=== PATIENT | male | born 1955 | race Caucasian/White ===

== ENCOUNTER 2021-01-25 01:02 | Emergency (ER) | payer OTHER ==
[2021-01-25 01:11] VITALS: BP 166/97; PULSE 102
--- NOTE | 2021-01-25 01:43 | EDM.PDOC ---
ED HPI GENERAL MEDICAL PROBLEM - General Chief Complaint: Chest Pain Stated Complaint: possible heart issues rapid heart rate Time Seen by Provider: 01/25/21 01:12 Source of Information: Reports: Patient, Family () History Limitations: Reports: No Limitations - History of Present Illness INITIAL COMMENTS - FREE TEXT/NARRATIVE: Mr. Villarreal is a most pleasant 65-year-old gentleman who now presents the ED after developing sudden-onset retrosternal chest tightness, a discomfort, not a pain, that developed around 23:30 this evening, while he was lifting some heavy pots in order to get them out of the rain. The discomfort did not radiate, and he did not identify any modifiers. He states that he had associated dyspnea, possible slight nausea, and a sense of anxiety, although not a sense of impending doom. No associated diaphoresis. At present, the patient states that he has "extremely slight" retrosternal chest tightness, with none of the other associated symptoms. He did not take any [id number] or home remedies prior to coming to the ED. No prior similar symptoms. Here in the ED, the patient's initial BP is found to be elevated at 166/97, with slight tachycardia of 102 bpm. He is afebrile, saturating 95% on room air. He appears to be quite comfortable while semirecumbent on the gurney, in no acute distress. The patient states that about 2 weeks ago, while sitting and talking, he developed a sensation in his mid spine that felt like it was ascending and expanding. He states that he thought he was going to faint. His symptoms resolved after 10 to 15 minutes, without treatment. At no time did he experience any chest discomfort or dyspnea, and he states that the symptoms he experienced 2 weeks ago were distinctly different than what he experienced tonight. He did not seek medical attention for those symptoms. The patient states that he has had symptoms in the past similar to what he experienced 2 weeks ago, that he has always assumed were due to a pinched nerve in his neck, or something. Other than that, however, the patient denies having a recent fever, chills, sore throat, ear pain, nasal or sinus congestion, cough, dyspnea, chest pain, palpitations, nausea, vomiting, constipation, diarrhea, abdominal pain, urinary symptoms, recent weight gain or weight loss, recent bloody bowel movements or black bowel movements, recent joint aches, headaches, or rashes. The patient's PCP was Dr. Holden Carr; he has not found a replacement PCP yet. His Marine Surveyor is Dr. Laron Siegel. - Related Data Allergies Allergy/AdvReac Type Severity Reaction Status Date / Time Penicillins Allergy Rash Verified 01/25/21 01:11 Home Meds: Home Meds Multivitamins/Minerals [Vitamins and Minerals] 1 each PO DAILY 12/30/13 [History] cycloSPORINE [Restasis] 1 each OP DAILY 07/12/16 [History] Alpha Lipoic Acid 600 mg PO DAILY 03/29/19 [History] Ondansetron [Zofran] 4 mg BUCCAL Q6H PRN #5 tab 03/29/19 [Rx] Tamsulosin HCl [Flomax] 0.4 mg PO DAILY #5 cap.er.24h 03/29/19 [Rx] metFORMIN [Glucophage] 500 mg PO BID 03/29/19 [History] oxyCODONE HCl/Acetaminophen [Percocet 5-325 mg Tablet] 1 - 2 each PO Q4H PRN #10 tablet 03/29/19 [Rx] Past Medical History HEENT History: Reports: Impaired Vision Cardiovascular History: Reports: Hypertension Genitourinary History: Reports: BPH (untreated), Renal Calculus Neurological History: Reports: Neuropathy, Peripheral Endocrine/Metabolic History: Reports: Diabetes, Type II Dermatologic History: Reports: Eczema - Infectious Disease History Infectious Disease History: Reports: Chicken Pox, Measles, Mumps - Past Surgical History HEENT Surgical History: Reports: Oral Surgery (dental procedures) GI Surgical History: Reports: Hernia, Inguinal (right) Male Surgical History: Reports: Vasectomy Social & Family History - Tobacco Use Tobacco Use Status *Q: Never Tobacco User Second Hand Smoke Exposure: No - Caffeine Use Caffeine Use: Reports: None - Alcohol Use Alcohol Use History: Yes Alcohol Use Frequency: Rarely - Recreational Drug Use Recreational Drug Use: No - Living Situation & Occupation Living situation: Reports: , with Spouse 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 ED EXAM, GENERAL - Physical Exam Exam: See Below Exam Limited By: No Limitations General Appearance: Alert, WD/WN, No Apparent Distress Eye Exam: Bilateral Eye: EOMI, Normal Inspection Ears: Normal External Exam, Hearing Grossly Normal Nose: Normal Inspection Throat/Mouth: Normal Inspection, Normal Lips, Normal Voice, No Airway Compromise Head: Atraumatic, Normocephalic Neck: Normal Inspection, Full Range of Motion Respiratory/Chest: No Respiratory Distress, Lungs Clear, Normal Breath Sounds, No Accessory Muscle Use, Chest Non-Tender (including the sternum) Cardiovascular: Normal Peripheral Pulses, Regular Rate, Rhythm, No Edema, No Gallop, No JVD, No Murmur, No Rub Peripheral Pulses: 3+: Radial (L), Radial (R) GI/Abdominal: Normal Bowel Sounds, Soft, Non-Tender (palpation of the epigastrium does not induce retrosternal pain), No Organomegaly, No Distention, No Abnormal Bruit, No Mass Back Exam: Normal Inspection, Full Range of Motion, NT Extremities: Normal Inspection, Normal Range of Motion, No Pedal Edema, Normal Capillary Refill Neurological: Alert, Oriented, Normal Cognition, No Motor/Sensory Deficits Psychiatric: Normal Affect Skin Exam: Warm, Dry, Intact, Normal Color, No Rash #1 Interpretation EKG Date: 01/25/21 Time: 01:08 Rhythm: NSR Rate (Beats/Min): 96 Catarina: Normal P-Wave: Enlarged (LAE) QRS: Other (Late transition) ST-T: Other (J-point elevation in V3V5, but no ischemic changes, and no T wave inversions) QT: Normal Comparison: NA - No Prior EKG Course - Vital Signs Last Recorded V/S: Last Vital Signs Temp 36.2 C 01/25/21 01:07 Pulse 102 H 01/25/21 01:07 Resp 20 01/25/21 01:07 BP 166/97 H 01/25/21 01:07 Pulse Ox 95 01/25/21 01:07 - Orders/Labs/Meds Orders: Active Orders 24 hr Category Date Time Status EKG Documentation Completion [RC] STAT Care 01/25/21 01:15 Active Chest 2V [CR] Stat Exams 01/25/21 01:31 Taken Labs: Laboratory Tests 01/25/21 01/25/21 01/25/21 Range/Units 01:14 01:57 01:57 WBC 7.04 (4.23-9.07) K/mm3 RBC 4.58 L (4.63-6.08) M/mm3 Hgb 14.0 (13.7-17.5) gm/dl Hct 41.0 (40.1-51.0) % MCV 89.5 D (79.0-92.2) fl MCH 30.6 (25.7-32.2) pg MCHC 34.1 (32.2-35.5) g/dl RDW Std Deviation 41.8 (35.1-43.9) fL Plt Count 172 (163-337) K/mm3 MPV 10.7 (9.4-12.3) fl Neutrophils % (Manual) 66 H (40-60) % Band Neutrophils % 0 (0-10) % Lymphocytes % (Manual) 23 (20-40) % Atypical Lymphs % 0 % Monocytes % (Manual) 9 (2-10) % Eosinophils % (Manual) 2 (0.8-7.0) % Basophils % (Manual) 0 L (0.2-1.2) Platelet Estimate Adequate RBC Morph Comment Normal D-Dimer, Quantitative 0.40 (0.19-0.50) mg/L Sodium 143 (136-145) mEq/L Potassium 3.8 (3.5-5.1) mEq/L Chloride 105 (98-107) mEq/L Carbon Dioxide 26 (21-32) mEq/L Anion Gap 15.8 H (5-15) BUN 16 (7-18) mg/dL Creatinine 0.9 (0.7-1.3) mg/dL Est Cr Clr Drug Dosing 88.62 mL/min Estimated GFR (MDRD) > 60 (>60) mL/min BUN/Creatinine Ratio 17.8 (14-18) Glucose 160 H (70-99) mg/dL Calcium 9.0 (8.5-10.1) mg/dL Magnesium 1.9 (1.8-2.4) mg/dL Total Bilirubin 0.5 (0.2-1.0) mg/dL AST 18 (15-37) U/L ALT 30 (16-63) U/L Alkaline Phosphatase 88 (46-116) U/L Troponin I < 0.017 (0.00-0.056) ng/mL Total Protein 6.7 (6.4-8.2) g/dl Albumin 4.0 (3.4-5.0) g/dl Globulin 2.7 gm/dL Albumin/Globulin Ratio 1.5 (1-2) 01/25/21 Range/Units 03:36 WBC (4.23-9.07) K/mm3 RBC (4.63-6.08) M/mm3 Hgb (13.7-17.5) gm/dl Hct (40.1-51.0) % MCV (79.0-92.2) fl MCH (25.7-32.2) pg MCHC (32.2-35.5) g/dl RDW Std Deviation (35.1-43.9) fL Plt Count (163-337) K/mm3 MPV (9.4-12.3) fl Neutrophils % (Manual) (40-60) % Band Neutrophils % (0-10) % Lymphocytes % (Manual) (20-40) % Atypical Lymphs % % Monocytes % (Manual) (2-10) % Eosinophils % (Manual) (0.8-7.0) % Basophils % (Manual) (0.2-1.2) Platelet Estimate RBC Morph Comment D-Dimer, Quantitative (0.19-0.50) mg/L Sodium (136-145) mEq/L Potassium (3.5-5.1) mEq/L Chloride (98-107) mEq/L Carbon Dioxide (21-32) mEq/L Anion Gap (5-15) BUN (7-18) mg/dL Creatinine (0.7-1.3) mg/dL Est Cr Clr Drug Dosing mL/min Estimated GFR (MDRD) (>60) mL/min BUN/Creatinine Ratio (14-18) Glucose (70-99) mg/dL Calcium (8.5-10.1) mg/dL Magnesium (1.8-2.4) mg/dL Total Bilirubin (0.2-1.0) mg/dL AST (15-37) U/L ALT (16-63) U/L Alkaline Phosphatase (46-116) U/L Troponin I < 0.017 (0.00-0.056) ng/mL Total Protein (6.4-8.2) g/dl Albumin (3.4-5.0) g/dl Globulin gm/dL Albumin/Globulin Ratio (1-2) Meds: Medications Discontinued Medications Generic Name Dose Route Start Last Admin Trade Name Berenice PRN Reason Stop Dose Admin Aspirin 324 mg 01/25/21 01:56 01/25/21 02:08 Aspirin 81 Mg Tab.Chew PO 01/25/21 01:57 324 mg ONETIME STA Administration - Re-Assessments/Exams Free Text/Narrative Re-Assessment/Exam: 01/25/21 01:33 As above, the patient developed sudden-onset retrosternal chest tightness, along with dyspnea, possibly slight nausea, and a sense of anxiety, when lifting some heavy pots around 23:30 this evening. At present, he only has very slight retrosternal chest tightness, with no other symptoms. His physical exam is completely unremarkable. Although an ECG obtained at triage is unremarkable, there are several features to his story that are concerning for a cardiac etiology. I have ordered a work- up that includes several blood tests and a chest x-ray. 01/25/21 02:07 Two-view chest radiograph appears to be grossly normal. The cardiac silhouette is within normal limits. No pulmonary vascular congestion. No pleural effusions. No focal infiltrate. No pneumothorax. Formal read per the Radiologist pending. 01/25/21 02:32 The patient's CBC is unremarkable. His CMP is remarkable for an anion gap slightly elevated at 15.8, but with a bicarbonate normal at 26, and modest hyperglycemia of 160, with the remainder of his CMP being unremarkable. His magnesium level is within normal limits at 1.9. His troponin is undetectably low. His D-dimer is within normal limits at 0.40. I have ordered repeat troponin to be drawn at 03:30 - 4 hours after the onset of his symptoms. 01/25/21 02:34 Test results discussed with the patient. He states that he is completely asymptomatic at this time. 01/25/21 04:16 The patient's repeat troponin is still undetectably low. 01/25/21 04:21 Test results discussed with the patient and his . As above, today's work-up is entirely unremarkable, however, I am concerned that his presentation was cardiac in etiology, therefore I recommended that we have him establish a PCP in the clinic Tuesday morning, and arrange to get a cardiac stress test this week. Patient is agreeable. In the meantime, I am recommending that the patient begin taking 81 mg of aspirin daily. He is to refrain from physically strenuous activity, and if he redevelops similar symptoms as earlier tonight, which do not resolve promptly with rest, he is to return to the ED for reevaluation. Departure - Departure Time of Disposition: 04:22 Disposition: Home, Self-Care 01 Condition: Good Clinical Impression: Chest pain of uncertain etiology - Discharge Information *PRESCRIPTION DRUG MONITORING PROGRAM REVIEWED*: Not Applicable *COPY OF PRESCRIPTION DRUG MONITORING REPORT IN PATIENT CUONG: Not Applicable Instructions: Nonspecific Chest Pain, Adult, [id number] Referrals: PCP,None [Primary Care Provider] - Ludy Engel NP [Nurse Practitioner] - Forms: ED Department Discharge Additional Instructions: You were seen in the emergency room after developing central chest tightness, along with shortness of breath, some nausea, and anxiety, after lifting some heavy items. Work-up in the ER included numerous blood tests, a chest x-ray, and an ECG. Your entire work-up was unremarkable. You have not suffered a heart attack. You do not have a blood clot in your lungs. You do not have pneumonia or a collapsed lung. Despite your negative work-up, based on your history, physical exam, and ER tests, we are concerned that your symptoms may be due to cardiac ischemia, where your heart did not get an adequate amount of blood flow. We recommend that you contact the clinic Tuesday morning, 01/26/2021, to establish a PCP, either Ludy Engel NP, or whoever is available. Make sure that the hotel or motel receptionist understands that you are following up from the ER, and that we recommend that you be seen immediately. Your PCP can then arrange for you to undergo a cardiac stress test, which we recommend be performed this week. We recommend that you begin taking an 81 mg chewable (not enteric-coated) aspirin daily. We recommend that you refrain from significant physical activity. If you redevelop similar symptoms as you did tonight, we recommend that you immediately sit down. If your symptoms do not resolve within a couple of minutes, we recommend that you chew four 81 mg aspirins and return to the ER immediately. If any other problems, please do not hesitate to return to the ER. Sepsis Event Note (ED) - Evaluation Sepsis Screening Result: No Definite Risk - Focused Exam Vital Signs: Vital Signs Temp Pulse Resp BP Pulse Ox 01/25/21 01:07 36.2 C 102 H 20 166/97 H 95 - My Orders Last 24 Hours: My Active Orders 01/25/21 01:15 EKG Documentation Completion [RC] STAT 01/25/21 01:31 Chest 2V [CR] Stat - Assessment/Plan Last 24 Hours: My Active Orders 01/25/21 01:15 EKG Documentation Completion [RC] STAT 01/25/21 01:31 Chest 2V [CR] Stat
[2021-01-25] MEDS ORDERED: Aspirin 81 MG Tab.Chew PO STA (01:56)
--- NOTE | 2021-01-26 08:08 | CR ---
Chest: 2 views of the chest were obtained. Comparison: Prior chest x-ray of 12/30/13. Heart size and mediastinum are normal. Lungs are clear with no acute parenchymal change. Slight degenerative spurring is noted within the spine. Impression: 1. Nothing acute is seen on 2 view chest x-ray. Diagnostic code #2
== END 2021-01-25 04:39 | disposition home or self-care (01) ==
LOC: JD.ED 01:02
DX: R07.89 Other chest pain (principal); I10 Essential (primary) hypertension; E11.42 Type 2 diabetes mellitus with diabetic polyneuropathy; N40.0 Benign prostatic hyperplasia without lower urinary tract symptoms; Z79.899 Other long term (current) drug therapy; Z88.0 Allergy status to penicillin
CPT/HCPCS: 36415; 71046; 80053; 83735; 84484; 85007; 85027; 85379; 93005; 99285; A9270; 93010; 99284

== ENCOUNTER 2024-01-10 19:59 | Emergency (ER) | payer BC, MEDICARE ==
[2024-01-10 21:47] LABS: BASOPHILS ABSOLUTE AUTO 0.1 K/mm3 (0.0-0.2); BASOPHILS PERCENT AUTO 0.6 % (0.0-1.0); EOSINOPHILS ABSOLUTE AUTO 0.1 K/mm3 (0.0-0.4); EOSINOPHILS PERCENT AUTO 1.3 % (0.0-6.0); HEMATOCRIT 41.2 % (42.0-52.0); HEMOGLOBIN 13.6 gm/dl (14.0-18.0); IMMATURE GRAN ABSOLUTE AUTO 0.03 K/mm3 (0.00-0.05); IMMATURE GRAN PERCENT AUTO 0.4 % (0.0-0.4); LYMPHOCYTES ABSOLUTE AUTO 0.7 K/mm3 (1.0-4.8); LYMPHOCYTES PERCENT AUTO 8.4 % (24.0-44.0); MEAN CORPUSCULAR HEMOGLOBIN 29.9 pg (28.0-32.0); MEAN CORPUSCULAR VOLUME 90.5 fl (83.0-99.0); MEAN PLATELET VOLUME 12.8 fl (9.4-12.4); MONOCYTES ABSOLUTE AUTO 0.8 K/mm3 (0.0-0.8); MONOCYTES PERCENT AUTO 9.2 % (0.0-8.0); NEUTROPHILS ABSOLUTE AUTO 6.6 K/mm3 (1.8-7.7); NEUTROPHILS PERCENT AUTO 80.1 % (41.0-71.0); PLATELET COUNT,PLT 184 K/mm3 (150-400); RED BLOOD CELL COUNT 4.55 M/mm3 (4.52-5.90); WHITE BLOOD CELL COUNT,WBC 8.25 K/mm3 (3.9-11.3)
[2024-01-10] MEDS: Lactated Ringers 1,000 ML IV ONE (21:48)
[2024-01-10 21:57] LABS: INR 1.03
[2024-01-10] MEDS: Sodium Chloride 0.9% 10 ML Syringe FLUSH PRN (21:58)
[2024-01-10 22:03] LABS: D-DIMER QUANTITATIVE 0.73 mg/L (0.19-0.50)
[2024-01-10 22:06] LABS: A/G RATIO 1.3 (1-2); ALBUMIN 3.7 g/dl (3.4-5.0); ANION GAP 12.2 (5-15); BILIRUBIN TOTAL 0.6 mg/dL (0.2-1.0); BUN/CREATININE RATIO 14.5 (14-18); CALCIUM 9.3 mg/dL (8.5-10.1); CREATININE 1.1 mg/dL (0.7-1.3); EST CRCL DRUG DOSING (CG) 69.57 mL/min; POTASSIUM,K 4.2 mEq/L (3.5-5.1); PROTEIN TOTAL,TP 6.6 g/dl (6.4-8.2)
[2024-01-10] MEDS: Iopamidol 755 Mg/ML 100 ML Bottle IVPUSH ONE (23:25)
[2024-01-11] MEDS: Furosemide 40 MG Tab PO ONE (00:47)
[2024-01-11 00:52] VITALS: BP 132/73; PULSE 79
== END 2024-01-11 00:52 | disposition home or self-care (01) ==
LOC: JD.ED 19:59
DX: J81.0 Acute pulmonary edema (principal); I11.0 Hypertensive heart disease with heart failure; I50.9 Heart failure, unspecified; E11.9 Type 2 diabetes mellitus without complications; Z88.0 Allergy status to penicillin; Z79.51 Long term (current) use of inhaled steroids; Z79.899 Other long term (current) drug therapy
CPT/HCPCS: 36415; 71045; 71045-26; 71275; 71275-26; 80053; 83690; 83880; 84484; 85025; 85379; 85610; 93005; 93010; 93971-26-LT; 93971-LT; 96360; 96361; 99284; 99285-25; A9270-GY; J3490; J7120; Q9967

== ENCOUNTER 2024-05-07 17:26 | Emergency (ER) | payer BC, MEDICARE ==
[2024-05-07] MEDS ORDERED: Amiodarone 150 MG/3 ML SDV ONE (17:30)
[2024-05-07] MEDS ORDERED: Sodium Bicarbonate 8.4% 50 MEQ/50 ML Syringe ONE (17:30)
[2024-05-07] MEDS ORDERED: EPINEPHrine 1:10,000 1 MG/10 ML Syringe ONE ×2 (17:30)
== END 2024-05-07 19:31 | disposition expired ==
LOC: JD.ED 17:26
DX: I46.9 Cardiac arrest, cause unspecified (principal); U07.1 COVID-19; I10 Essential (primary) hypertension; E11.9 Type 2 diabetes mellitus without complications; Z88.0 Allergy status to penicillin; Z79.84 Long term (current) use of oral hypoglycemic drugs; Z79.899 Other long term (current) drug therapy
CPT/HCPCS: 36415; 92950; 96374; 96375; 99285; J0171; J0282; 31500; 36556; J3490